=== PATIENT | male | born 1940 | race Caucasian/White ===

== ENCOUNTER 2017-10-23 09:11 | Inpatient (IN) | payer OTHER ==
[~2017-10-23] VITALS: Ht 182.8 cm; Wt 108.7 kg
--- NOTE | ~2017-10-23 | O ---
[place], [place] OPERATIVE NOTE NAME: GILLIAN HWANG UNIT #: [id number] ROOM: 529 DOCTOR: TERRY DIEGO,ANA BIRTHDATE: [birth year] DOS: 10/25/2017 GASTROENDOSCOPIC REPORT PROCEDURE: Today's procedure part of investigation is colonoscopy plus +3 polypectomy. PREMEDICATION: By anesthesia. SCOPE: Olympus forward-viewing colonoscope 10L video. REPORT: After putting the patient in the left lateral position and application of lubricant to the scope, the scope was introduced. Thereafter, under direct visualization, advanced through the length of colon without difficulty. Two sessile polyp from hepatic flexure, one from mid ascending colon with piecemeal polypectomy was removed. Base of the cecum explored, appendiceal orifice identified, and ileocecal valve was defined. Scope was gradually withdrawn. The patient extubated and tolerated procedure well. IMPRESSION: Multi-colonic polyp x 3, status post piecemeal polypectomy, rare diverticulosis. PLAN: Resumption of feeding regular diet. ACTIVITY: Ad allison. FOLLOWUP: Followup routinely with you in office. ANA STEWART MD CM:OPRECORD:OPERATIVE NOTE [id number] ANA STEWART MD 10/25/17 0852 interface
--- NOTE | ~2017-10-23 | O ---
[place], [place] OPERATIVE NOTE NAME: GILLIAN HWANG UNIT #: [id number] ROOM: 529 DOCTOR: SHAILESH HESS DMD BIRTHDATE: [birth year] DOS: 10/25/2017 PREOPERATIVE DIAGNOSES: Caries and intraoral abscess. POSTOPERATIVE DIAGNOSES: Caries and intraoral abscess. ANESTHESIA: General anesthesia with endotracheal intubation. FLUIDS: Minimal. ESTIMATED BLOOD LOSS: Minimal. COMPLICATIONS: None. CONDITION: To PACU, stable. DESCRIPTION OF PROCEDURE: The patient was brought to the OR and placed in supine position. IV and EKG lines were placed. Endotracheal intubation and general anesthesia was administered. The patient was prepped and draped for oral procedures. Risks and benefits were explained to the patient prior to surgery. Clinical exam determined teeth #22 through 27 nonrestorable. PROCEDURES PERFORMED: Complete extraction of teeth #22, 23, 24, 25, 26, 27. Minimal alveoplasty, incision and drainage of buccal space abscess with a small stab incision and curettage, sutured with 4-0 Vicryl. Lavaged x 2. Throat pack removed. The patient left the OR in good condition and went to the PACU. SHAILESH HESS DMD CM:OPRECORD:OPERATIVE NOTE [id number] SHAILESH HESS DMD 10/25/17 1615 interface
--- NOTE | ~2017-10-23 | CON ---
[place], [place] REPORT OF CONSULTATION NAME: GILLIAN HWANG UNIT #: [id number] ROOM: 529 DOCTOR: SHAILESH HESS DMD BIRTHDATE: [birth year] DOS: REASON FOR CONSULTATION: Facial swelling. HISTORY OF PRESENT ILLNESS: The patient complained of left-sided facial swelling. Upon admission, that has substantially decreased. On exam, minimal mental swelling noted. No buccal space or submandibular swelling. The patient denies any difficulty swallowing or breathing. Intraoral exam, the patient is edentulous on the maxilla and has teeth numbers 22 through 27 remaining on the lower, all have extensive wear and significant caries. A buccal space swelling extending from 22-27 with a small fistula noted. No drainage is identified. Discussed treatment options with the patient. Treatment recommended is full mouth extraction and I and D. We will attempt to correlate surgery. The patient is having surgery with Dr. Kohli tomorrow. SHAILESH HESS DMD CM:CONSTR:REPORT OF CONSULTATION 0928 10/26/17 0218 interface
--- NOTE | ~2017-10-23 | O ---
[place], [place] OPERATIVE NOTE NAME: GILLIAN HWANG UNIT #: [id number] ROOM: 529 DOCTOR: ANA STEWART MD BIRTHDATE: [birth year] DOS: 10/25/2017 GASTROENDOSCOPIC REPORT INDICATIONS: The patient has presented with old history of GI bleed, undergoing investigation. The patient has had dental extraction this morning on the general sedation. Therefore, we had also prep the patient for EGD and colonoscopy, and investigation of source of bleeding. PROCEDURE: Today's procedure part of investigation is panendoscopy and colonoscopy. PREMEDICATION: General anesthesia. SCOPE: Olympus forward-viewing gastroscope Q10 video. REPORT: After putting the patient in left lateral position and application of lubricant to the scope, the scope was introduced. Thereafter, under direct visualization, advanced through the length of esophagus without difficulty. Gastric pouch was entered. Diffuse gastritis was noticed. Antral biopsy was obtained. Duodenal bulb, second and third part free of ulceration, lesion. The patient extubated and tolerated procedure well. IMPRESSION: Gastritis, status post biopsy. PLAN AND DISCUSSION: We will make sure that the patient remains on PPI, omeprazole 20 mg at least daily and continuation with his other medications. Meanwhile, we are going to proceed with colonoscopy. ANA STEWART MD CM:OPRECORD:OPERATIVE NOTE [id number] ANA STEWART MD 10/25/17 0845 interface
[2017-10-23 09:12] VITALS: BP 148/65
[2017-10-23 09:41] LABS: HEMATOCRIT 46.2 % (42.0-52.0); HEMOGLOBIN 15.2 g/dl (14.0-18.0); MEAN CELL VOLUME 93.7 fl (80.0-94.0); MEAN CORPUSCULAR HGB 30.8 pg (27.0-31.0); MEAN CORPUSCULAR HGB CONC 32.9 g/dl (33.0-37.0); MEAN PLATELET VOLUME 9.5 fl (9.6-12.3); PLATELET COUNT AUTOMATED 208 10*3/uL (130-400); RED BLOOD COUNT 4.93 10*6/uL (4.50-5.90); RED CELL DISTRI WIDTH 13.8 % (0-14.5); WHITE BLOOD COUNT 9.9 10*3/uL (4.8-10.8)
[2017-10-23 10:02] LABS: ALBUMIN 3.7 gm/dl (3.1-4.5); ALKALINE PHOSPHATASE 54 U/L (45-117); BUN 14 mg/dl (7-24); CHLORIDE 98 mmol/L (98-107); CREATININE 1.13 mg/dL (0.70-1.30); POTASSIUM 4.1 mmol/L (3.5-5.1); SGOT/AST 15 IU/L (3-35); SGPT/ALT 26 U/L (12-78); SODIUM 133 mmol/L (136-145); TOTAL PROTEIN 7.5 gm/dL (6.4-8.2)
[2017-10-23 10:05] LABS: TROPONIN I < 0.015 ng/ml (<0.045)
[2017-10-23 10:08] LABS: TOTAL CELLS COUNTED 100 #CELLS
[2017-10-23 10:09] LABS: PLATELET SUFFICIENCY NORMAL (NORMAL)
[2017-10-23] MEDS ORDERED: DOXYCYCLINE100 M3 PO (11:17)
[2017-10-23 12:22] VITALS: BP 136/67
[2017-10-23 13:45] VITALS: BP 146/71
[2017-10-23 16:00] VITALS: BP 124/48
[2017-10-23] MEDS ORDERED: 24 HOUR ALLER15.8 ML NAS (16:30)
[2017-10-23] MEDS ORDERED: ZESTRIL20 MG PO (17:55)
[2017-10-23] MEDS ORDERED: HYDROCHLOROTH12.5 M2 PO (17:55)
[2017-10-23] MEDS ORDERED: TENORMIN50 MG PO (17:56)
[2017-10-23] MEDS ORDERED: SIMVASTATIN80 MG PO (17:56)
[2017-10-23] MEDS ORDERED: EUCERIN, DERMA120 GM T (17:58)
[2017-10-23] MEDS ORDERED: REFRESH PLUS1 EACH OP (18:00)
[2017-10-23] MEDS ORDERED: ETODOLAC400 M2 PO (18:02)
[2017-10-23] MEDS ORDERED: TRAMADOL HCL50 MG PO (18:04)
[2017-10-23] MEDS ORDERED: GLUCOPHAGE500 M1 PO (18:06)
[2017-10-23] MEDS ORDERED: ASPIRIN ADULT L81 M1 PO (18:07)
[2017-10-23 20:00] VITALS: BP 145/52
[2017-10-24] VITALS: BP 121/54
[2017-10-24 06:10] LABS: BASO % 0.4 % (0.0-1.0); EOS # 0.3 10*3/uL (0.0-0.4); EOS % 3.9 % (1.0-4.0); HEMATOCRIT 41.9 % (42.0-52.0); LYMPH # 1.3 10*3/uL (1.3-4.4); LYMPH % 18.1 % (27.0-41.0); MEAN CELL VOLUME 92.5 fl (80.0-94.0); MEAN CORPUSCULAR HGB 30.9 pg (27.0-31.0); MEAN CORPUSCULAR HGB CONC 33.4 g/dl (33.0-37.0); MEAN PLATELET VOLUME 9.5 fl (9.6-12.3); MONO # 1.1 10*3/uL (0.1-1.0); MONO % 16.5 % (3.0-9.0); NEUT # 4.2 10*3/uL (2.3-7.9); NEUT % 60.8 % (47.0-73.0); PLATELET COUNT AUTOMATED 180 10*3/uL (130-400); RED BLOOD COUNT 4.53 10*6/uL (4.50-5.90); RED CELL DISTRI WIDTH 13.6 % (0-14.5); WHITE BLOOD COUNT 6.9 10*3/uL (4.8-10.8)
[2017-10-24 06:37] LABS: CHLORIDE 105 mmol/L (98-107); POTASSIUM 3.9 mmol/L (3.5-5.1); SODIUM 138 mmol/L (136-145)
[2017-10-24 06:47] LABS: ALBUMIN 3.2 gm/dl (3.1-4.5); ALKALINE PHOSPHATASE 48 U/L (45-117); BUN 16 mg/dl (7-24); CHOLESTEROL 123 mg/dL (<200); CREATININE 0.82 mg/dL (0.70-1.30); FREE T4 1.15 ng/dl (0.76-1.46); HDL CHOLESTEROL 32 mg/dl (40-60); LDL CHOLESTEROL 64 mg/dL (9-159); PHOSPHOROUS 2.8 mg/dL (2.5-4.9); SGOT/AST 13 IU/L (3-35); SGPT/ALT 21 U/L (12-78); TOTAL PROTEIN 6.7 gm/dL (6.4-8.2); TRIGLYCERIDES 137 mg/dl (<150); VLDL CHOLESTEROL 27 mg/dL (6-40)
[2017-10-24 07:30] LABS: VITAMIN D, 25-HYDROXY 31.2 ng/mL (30-100)
[2017-10-24 07:52] VITALS: BP 150/73
[2017-10-24 12:14] VITALS: BP 152/57
[2017-10-24 15:52] VITALS: BP 135/72
[2017-10-24 20:00] VITALS: BP 138/67
[2017-10-25] VITALS (9 sets, daily range): BP systolic 104–160; BP diastolic 53–86
[2017-10-25] MEDS ORDERED: CLINDAMYCIN HC300 MG PO (10:31)
[2017-10-25] MEDS ORDERED: PANTOPRAZOLE SO40 MG PO (12:49)
[2017-10-26] MEDS ORDERED: CLINDAMYCIN HC300 MG PO (16:23)
[2017-10-26] MEDS ORDERED: OMEPRAZOLE D/R20 MG PO (16:24)
== END 2017-10-25 14:01 | disposition home or self-care (01) | DRG 131 ==
LOC: ED 09:11 → EDHOLD 12:17 → 5E 12:17
PROVIDERS: Internal Medicine; Registered Nurse
PROC: 0DB78ZX Excision of Stomach, Pylorus, Via Natural or Artificial Opening Endoscopic, Diagnostic (ICD-10-PCS; principal; 2017-10-25)
PROC: 0D5L8ZZ Destruction of Transverse Colon, Via Natural or Artificial Opening Endoscopic (ICD-10-PCS; 2017-10-25)
PROC: 0D5K8ZZ Destruction of Ascending Colon, Via Natural or Artificial Opening Endoscopic (ICD-10-PCS; 2017-10-25)
PROC: 0CDXXZ1 Extraction of Lower Tooth, Multiple, External Approach (ICD-10-PCS; 2017-10-25)
PROC: 0C9X0Z1 Drainage of Lower Tooth, Open Approach, Multiple (ICD-10-PCS; 2017-10-25)
PROC: 0NQV0ZZ Repair Left Mandible, Open Approach (ICD-10-PCS; 2017-10-25)
DX: K02.9 Dental caries, unspecified (principal); K29.71 Gastritis, unspecified, with bleeding; E11.65 Type 2 diabetes mellitus with hyperglycemia; E87.2 Acidosis; L03.211 Cellulitis of face; E87.1 Hypo-osmolality and hyponatremia; K12.2 Cellulitis and abscess of mouth; E66.9 Obesity, unspecified; E78.00 Pure hypercholesterolemia, unspecified; I10 Essential (primary) hypertension; G89.4 Chronic pain syndrome; H91.90 Unspecified hearing loss, unspecified ear; J42 Unspecified chronic bronchitis; E78.5 Hyperlipidemia, unspecified; D12.2 Benign neoplasm of ascending colon; D12.3 Benign neoplasm of transverse colon; Z79.899 Other long term (current) drug therapy; Z79.82 Long term (current) use of aspirin; Z68.32 Body mass index [BMI] 32.0-32.9, adult

== ENCOUNTER 2017-10-26 16:05 | Emergency (ER) | payer OTHER ==
[~2017-10-26] VITALS: Ht 182.8 cm; Wt 104.3 kg
[~2017-10-26 16:05] MED LIST: 24 HOUR ALLER15.8 ML NAS; ASPIRIN ADULT L81 M1 PO; CLINDAMYCIN HC300 MG PO; DOXYCYCLINE100 M3 PO; ETODOLAC400 M2 PO; EUCERIN, DERMA120 GM T; GLUCOPHAGE500 M1 PO; HYDROCHLOROTH12.5 M2 PO; PANTOPRAZOLE SO40 MG PO; REFRESH PLUS1 EACH OP; SIMVASTATIN80 MG PO; TENORMIN50 MG PO; TRAMADOL HCL50 MG PO; ZESTRIL20 MG PO
[2017-10-26] MEDS ORDERED: CLINDAMYCIN HC300 MG PO (16:23)
[2017-10-26] MEDS ORDERED: OMEPRAZOLE D/R20 MG PO (16:24)
[2017-10-26 16:45] LABS: BILIRUBIN NEGATIVE (NEGATIVE); BLOOD TRACE-INTACT (NEGATIVE); CLARITY CLEAR (CLEAR); COLOR YELLOW (YELLOW); GLUCOSE NEGATIVE (NEGATIVE); KETONE NEGATIVE (NEGATIVE); LEUKO ESTERASE NEGATIVE (NEGATIVE); NITRITE NEGATIVE (NEGATIVE); SPECIFIC GRAVITY 1.015 (1.005-1.030); UROBILINOGEN 0.2 E.U./dl (0.2-1.0)
[2017-10-26 16:53] LABS: BACTERIA 2+; EPITHELIAL CELLS 0-2; WBC 0-2 wbc/hpf (0-5)
[2017-10-26 17:10] LABS: BASO % 0.5 % (0.0-1.0); EOS # 0.3 10*3/uL (0.0-0.4); EOS % 4.6 % (1.0-4.0); HEMATOCRIT 43.1 % (42.0-52.0); HEMOGLOBIN 14.3 g/dl (14.0-18.0); LYMPH # 1.6 10*3/uL (1.3-4.4); MEAN CELL VOLUME 92.3 fl (80.0-94.0); MEAN CORPUSCULAR HGB 30.6 pg (27.0-31.0); MEAN CORPUSCULAR HGB CONC 33.2 g/dl (33.0-37.0); MEAN PLATELET VOLUME 9.3 fl (9.6-12.3); MONO # 0.7 10*3/uL (0.1-1.0); MONO % 12.2 % (3.0-9.0); NEUT # 3.4 10*3/uL (2.3-7.9); NEUT % 56.4 % (47.0-73.0); PLATELET COUNT AUTOMATED 263 10*3/uL (130-400); RED BLOOD COUNT 4.67 10*6/uL (4.50-5.90); RED CELL DISTRI WIDTH 13.6 % (0-14.5); WHITE BLOOD COUNT 6.1 10*3/uL (4.8-10.8)
[2017-10-26 17:25] LABS: ALBUMIN 3.5 gm/dl (3.1-4.5); ALKALINE PHOSPHATASE 55 U/L (45-117); BUN 12 mg/dl (7-24); CHLORIDE 106 mmol/L (98-107); CREATININE 0.84 mg/dL (0.70-1.30); POTASSIUM 3.8 mmol/L (3.5-5.1); SGOT/AST 21 IU/L (3-35); SGPT/ALT 29 U/L (12-78); SODIUM 140 mmol/L (136-145)
== END 2017-10-26 18:26 | disposition home or self-care (01) ==
LOC: ED 16:05
PROVIDERS: Emergency Medicine
DX: R33.9 Retention of urine, unspecified (principal); G89.29 Other chronic pain; E11.65 Type 2 diabetes mellitus with hyperglycemia; I10 Essential (primary) hypertension; E78.00 Pure hypercholesterolemia, unspecified; E66.9 Obesity, unspecified; Z68.34 Body mass index [BMI] 34.0-34.9, adult; Z79.899 Other long term (current) drug therapy; Z79.82 Long term (current) use of aspirin

== ENCOUNTER → 2018-06-30 | Outpatient (CLI) | payer OTHER ==
[~2018-06-30] MED LIST changes: +OMEPRAZOLE D/R20 MG PO
== END | disposition home or self-care (01) ==
LOC: US 09:24
DX: K76.0 Fatty (change of) liver, not elsewhere classified (principal); R10.84 Generalized abdominal pain; R94.5 Abnormal results of liver function studies